=== PATIENT | female | born 1990 | race Caucasian/White ===

== ENCOUNTER 2022-07-22 19:58 | Emergency (ER) | payer MEDICAID, SELFPAY ==
[2022-07-22 20:12] VITALS: BP 165/86; PULSE 81; RESP 16; TEMP 36.8; O2SAT 99
--- NOTE | 2022-07-22 20:21 | XRR_ITS ---
PROCEDURE INFORMATION: Exam: XR Left Hand Exam date and time: 07/22/2022 8:30 PM Age: 31 years old Clinical indication: Injury or trauma; Other: Unsure; Blunt trauma (contusions or hematomas); Patient HX: PT C/O left hand pain onset over one week ago due to injury TECHNIQUE: Imaging protocol: Radiologic exam of the left hand. Views: 3 or more views. COMPARISON: No relevant prior studies available. FINDINGS: Bones/joints: Normal. Soft tissues: Normal. Other findings: Three views submitted. XR/XR hand LT min 3V* [id number] IMPRESSION: No acute findings.
--- NOTE | 2022-07-22 20:21 | USR_ITS ---
PROCEDURE INFORMATION: Exam: US Pelvis Limited, Transabdominal and US Pelvis, Transvaginal Exam date and time: 07/22/2022 8:33 PM Age: 31 years old Clinical indication: Menstruation abnormalities; Excessive menstruation; With regular cycle; Additional info: Vaginal bleeding TECHNIQUE: Imaging protocol: Real-time transabdominal and transvaginal pelvic ultrasound (limited) with image documentation. Transvaginal imaging was used for better evaluation of the endometrium, adnexa, and/or cervix. COMPARISON: No relevant prior studies available. FINDINGS: Uterus: The anteverted uterus measures about 10.4 x 5.9 by 6.9 cm. Endometrium measures about 14 mm in thickness which is slightly heterogeneous, with no obvious fluid/debris. No feeding vessels are seen by color Doppler to suggest large polypoid lesions.. No large uterine myoma. Somewhat heterogeneous myometrium with tiny myometrial cystic foci suggesting uterine adenomyosis. Cervix: Unremarkable cervix. Right ovary/adnexa: Right ovary measures 3.7 x 2 x 3.4 cm. The right ovary contains a unilocular cyst measuring 2.6 x 2.2 x 2.6 cm with no obvious solid elements. A few tiny simple follicles are seen bilaterally. No suspicious adnexal region masses or ovarian stromal edema on either side. There is flow in both ovarian parenchyma demonstrating normal spectral waveforms. Left ovary/adnexa: Left ovary measures 2.9 x 1.2 x 1.8 cm. Intraperitoneal space: Multiple transabdominal pelvic ultrasound images were obtained including limited duplex imaging. Details are somewhat limited and therefore transvaginal imaging was also performed. No significant free pelvic fluid. Urinary bladder: Urinary bladder is grossly unremarkable. US/US pelv w/transvag [id number] IMPRESSION: 1. Uterine adenomyosis. 2. Somewhat heterogeneous endometrium as described above. Follow-up assessment with saline hysterosonography may be obtained if clinically indicated. 3. No suspicious adnexal region masses. Right ovarian cyst measuring 2.6 cm, likely benign/physiologic.
--- NOTE | 2022-07-22 20:22 | ED_ITS ---
HPI - General: Chief complaint: Vaginal Bleeding Stated complaint: vaginal bleeding for 3wks, large clots Time Seen by Provider: 07/22/22 20:17 Source: patient Mode of arrival: ambulatory Limitations: no limitations History of Present Illness: 31-year-old female who states she has had a histor y of some irregular periods states she had her menstruation 3 weeks ago and has stopped bleeding for few days and started bleeding again over the last 2 days and today states she had very heavy bleeding states she been passing clots and soaked through a pad. She had some slight abdominal cramping she does not believe she is she denies any vomiting or diarrhea or dysuria she also has another complaint of left hand pain states she was driving 2 weeks ago and felt a pop at the base of her left index finger and has had some slight swelling there no redness no warmth to touch she rates that pain a 2 out of 10 Associated symptoms: Deny abdominal pain, headache(s), nausea or vomiting Review of Systems Const: Denies: fever(s), chills, body aches or change in appetite Eyes: Denies: blurry vision or eye discomfort ENMT: Denies: throat pain or dental pain Card: Denies: chest pain Resp: Denies: dyspnea GI: Denies: abdominal pain, nausea, vomiting or diarrhea : Reports: vaginal bleeding Musc: Reports: extremity pain Skin/Breast: Denies: rash Neuro: Denies: headache(s) Psych: Denies: depression [place]/Lymph: Denies: easy bruising All/Imm: Denies: urticaria PFSH ED PFSH: Medical History (Updated 07/22/22 @ 21:18 by Rubi Cruz MD) No pertinent past medical history Social History (Updated 07/22/22 @ 20:23 by Rubi Cruz MD) Substance/Drug Use: never Physical Exam Const: COMMON NORMALS: no acute distress, patient oriented x3 and healthy appearing HENMT: COMMON NORMALS: normocephalic and atraumatic HEAD & SCALP: normocephalic and atraumatic Eye: COMMON NORMALS: Equal, round and reactive pupils present and EOMs intact bilaterally PUPIL: Yes Equal, round and reactive pupils present Neck/C-Spine: COMMON NORMALS: full ROM and supple Chest: COMMONS NORMALS: normal inspection of the chest and normal palpation of entire chest wall Resp: COMMON NORMALS: normal respiratory effort, No retractions, No use of accessory muscles and clear to auscultation bilaterally AUSCULTATION: clear to auscultation bilaterally Cardio: COMMON NORMALS: regular rate, regular rhythm and No murmurs present (Cardio) RATE: regular rate RHYTHM: regular rhythm GI: COMMON NORMALS: Normal to inspection, nondistended, normoactive bowel sounds present, Soft to palpation, non-tender and no masses PALPATION: Yes Soft to palpation Extremity: NARRATIVE EXTREMITY EXAM: Some slight tenderness at the base of the first digit with slight swelling no redness no warmth to touch full range of motion she is able to make a fist without any problems Neuro: COMMON NORMALS: patient oriented x3, moves all extremities and no focal motor deficits Psych: COMMON NORMALS: mental status grossly normal, Normal thought process present and cooperative THOUGHT PROCESS: Normal thought process present Skin: COMMON NORMALS: no rashes or lesions noted and no wounds GENERAL SKIN EXAM: no rashes or lesions noted Course Vital Signs: Vital signs: Vital Signs Temperature 98.2 F 07/22/22 20:12 Pulse Rate 81 07/22/22 20:12 Respiratory Rate 16 07/22/22 20:12 Blood Pressure 165/86 07/22/22 20:12 Pulse Oximetry 99 07/22/22 20:12 Oxygen Delivery Me thod 07/22/22 20:12 MDM - OB/Uterine Contractions Medical Decision Making Patient presents here with vaginal bleeding is likely dysfunctional uterine bleeding ultrasound here is negative her hemoglobin is normal she is not her abdominal exam here is benign she is stable for discharge she is to follow-up with OB and return if worsening. Lab Data 07/22/22 20:32 07/22/22 20:32 Radiology Impressions Hand X-Ray 07/22/22 20:21 IMPRESSION: No acute findings. Laboratory Results WBC 10.2 10^3/uL (4.0-10.0) H 07/22/22 20:32 RBC 4.80 10^6/uL (4.1-5.3) 07/22/22 20:32 Hgb 14.5 g/dL (11.5-15.3) 07/22/22 20:32 Hct 42.7 % (37.0-47.0) 07/22/22 20:32 MCV 89.0 fl (81-99) 07/22/22 20: MCH 30.2 pg (28.0-34.0) 07/22/22: MCHC 34.0 g/dL (30.0-36.0) 07/22/22: RDW 13.2 % (12.1-15.1) 07/22/22 20: Plt Count 296 10^3/cmm (130-400) 07/22/22: MPV 10.6 fL (7.4-10.4) H 07/22/22 20: Neut % (Auto) 61.5 % 07/22/22: Lymph % (Auto) 26.7 % 07/22/22: [place] % (Auto) 9.2 % 07/22/22: Eos % (Auto) 1.8 % 07/22/22: Baso % (Auto) 0.5 % 07/22/22: Neut # (Auto) 6.29 10^3/uL (1.8-7.7) 07/22/22: Lymph # (Auto) 2.7 10^3/uL (0.8-4.8) 07/22/22: [place] # (Auto) 0.9 10^3/uL (0.2-0.9) 07/22/22: Eos # (Auto) 0.2 10^3/uL (0.0-0.8) 07/22/22: Baso # (Auto) 0.1 10^3/uL (0.0-0.1) 07/22/22: Nucleated RBC % (auto) 0 % 07/22/22: Nucleated RBCs # 0.0 /100WBC 07/22/22 20: Sodium 139 mmol/L (136-145) 07/22/22 20: Potassium 3.4 mmol/L (3.5-5.1) L 07/22/22 20: Chloride 102 mmol/L (98-107) 07/22/22 20: Carbon Dioxide 23 mmol/L (22-29) 07/22/22: Anion Gap 17.4 (5-19) 07/22/22 20: BUN 12 mg/dL (6-20) 07/22/22 20:32 Creatinine 0.5 mg/dL (0.5-0.9) 07/22/22 20:32 GFR Calculation 145.9 mL/min (90-130) H 07/22/22 20:32 Glucose 88 mg/dL (65-115) 07/22/22 20:32 Calculated Osmolality 287 mOsm/kg (285-295) 07/22/22 20:32 Calcium 9.4 mg/dL (8.5-10.5) 07/22/22 20:32 Total Bilirubin 0.3 mg/dL (0.15-1.2) 07/22/22 20:32 Alkaline Phosphatase 116 U/L (35-105) H 07/22/22 20:32 Total Protein 7.5 g/dL (6.6-8.7) 07/22/22 20:32 Albumin 4.5 g/dL (3.5-5.2) 07/22/22 20:32 Globulin 3.0 g/dL (1.3-4.6) 07/22/22 20:32 Ser , Semi-Qnt 1.00 mIU/mL 07/22/22 20:32 Discharge Plan Discharge Patient Disposition: Home Clinical Impression: Vaginal bleeding, Left hand pain Discharge Orders: Discharge ED (Routine); Ordered 07/22/22 Ordered By: Rubi Cruz Referrals: Frieda Hopper FNP [Family Provider] - Denae Welsh MD [Physician] - 1-3 days Katharina Hayes FNP [Primary Care Provider] - Discharge Diet: Advance as tolerated Discharge Activity: Resume usual activity Patient Instructions: Abnormal (Dysfunctional) Uterine Bleeding (ED) Coding Level of Care Code 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
[2022-07-22] MEDS: naproxen 500 mg Tablet PO (20:25)
[2022-07-22 20:40] LABS: Basophils # 0.1 10^3/uL (0.0-0.1); Basophils % 0.5 %; Eosinophils # 0.2 10^3/uL (0.0-0.8); Eosinophils % 1.8 %; Hematocrit 42.7 % (37.0-47.0); Hemoglobin 14.5 g/dL (11.5-15.3); Lymphocytes # 2.7 10^3/uL (0.8-4.8); Lymphocytes % 26.7 %; Mean Corpuscular Hemoglobin 30.2 pg (28.0-34.0); Mean Platelet Volume 10.6 fL (7.4-10.4); Monocytes # 0.9 10^3/uL (0.2-0.9); Monocytes % 9.2 %; Neutrophils # 6.29 10^3/uL (1.8-7.7); Neutrophils % 61.5 %; Nucleated Red Blood Cells % 0 %; Platelet Count 296 10^3/cmm (130-400); Red Cell Distribution Width 13.2 % (12.1-15.1); White Blood Count 10.2 10^3/uL (4.0-10.0)
[2022-07-22 21:13] LABS: Albumin Level 4.5 g/dL (3.5-5.2); Alkaline Phosphatase 116 U/L (35-105); Blood Urea Nitrogen 12 mg/dL (6-20); Calcium 9.4 mg/dL (8.5-10.5); Carbon Dioxide 23 mmol/L (22-29); Chloride 102 mmol/L (98-107); Glomerular Filtration Rate 145.9 mL/min (90-130); Glucose 88 mg/dL (65-115); Osmolality Calculated 287 mOsm/kg (285-295); Sodium 139 mmol/L (136-145); Total Bilirubin 0.3 mg/dL (0.15-1.2); Total Protein 7.5 g/dL (6.6-8.7)
[2022-07-22 21:16] LABS: Anion Gap 17.4 (5-19); Potassium 3.4 mmol/L (3.5-5.1)
[2022-07-22 21:25] LABS: Alanine Aminotransferase < 5 U/L (0-33); Aspartate Amino Transferase 5 U/L (0-32)
[2022-07-22 21:35] VITALS: BP 127/70; PULSE 89; RESP 14; O2SAT 99
== END 2022-07-22 21:36 | disposition home or self-care (01) ==
PROVIDERS: Emergency Provider Emergency Medicine; Family Provider Nurse Practitioner Family; PCP Nurse Practitioner Family
DX: N93.9 Abnormal uterine and vaginal bleeding, unspecified (principal); M79.642 Pain in left hand
CPT/HCPCS: 73130; 76830; 76856; 80053; 84702; 85025; 99284

== ENCOUNTER 2024-02-04 15:34 | Emergency (ER) | payer MEDICAID, SELFPAY ==
[2024-02-04 15:38] VITALS: BP 137/86; PULSE 90; RESP 16; TEMP 36.4; O2SAT 97; BMI 40.8
[2024-02-04 16:25] LABS: Basophils # 0.1 10^3/uL (0.0-0.1); Basophils % 0.6 %; Eosinophils # 0.2 10^3/uL (0.0-0.8); Eosinophils % 2.4 %; Hematocrit 37.8 % (36-47); Lymphocytes # 2.2 10^3/uL (0.8-4.8); Lymphocytes % 26.1 %; Mean Corpuscular HGB Conc 34.1 g/dL (30-55); Mean Corpuscular Hemoglobin 30.8 pg (27-33); Mean Corpuscular Volume 90.2 fl (85-98); Mean Platelet Volume 10.5 fL (7.4-10.4); Monocytes # 0.6 10^3/uL (0.2-0.9); Monocytes % 7.6 %; Neutrophils # 5.18 10^3/uL (1.8-7.7); Neutrophils % 62.5 %; Nucleated Red Blood Cells % 0 %; Platelet Count 304 10^3/cmm (157-399); Red Blood Count 4.19 10^6/uL (3.85-5.65); Red Cell Distribution Width 12.7 % (12.1-15.1)
--- NOTE | 2024-02-04 16:30 | USR_ITS ---
PROCEDURE INFORMATION: Exam: US Pelvis, Complete, Non-Obstetric Exam date and time: 02/04/2024 5:03 PM Age: 33 years old Clinical indication: Other: Bleeding; Additional info: Menometrorrhagia TECHNIQUE: Imaging protocol: Transabdominal pelvic nonobstetric ultrasound. Complete exam. Real time ultrasound with image documentation. COMPARISON: US pelvic complete* [id number] 07/22/2022 8:33 PM FINDINGS: Uterus: Uterus is normal in size. Endometrial stripe is normal. As before, there appears to be heterogeneous myometrium Right ovary/adnexa: Ovary is normal. No mass. Normal blood flow. Left ovary/adnexa: Ovary is normal. No mass. Normal blood flow. Intraperitoneal space: No intraperitoneal fluid. Urinary bladder: Normal. US/US pelv w/transvag [id number] IMPRESSION: 1. No acute findings. 2. Heterogeneous myometrium may represent uterine adenomyosis. This could be further assessed with nonemergent MRI pelvis without and with contrast if warranted.
[2024-02-04 16:40] LABS: HCG, Serum Qual Negative (Negative)
[2024-02-04 16:52] LABS: Alanine Aminotransferase 16 U/L (0-33); Albumin Level 3.9 g/dL (3.5-5.2); Alkaline Phosphatase 96 U/L (35-105); Chloride 106 mmol/L (98-107); Potassium 3.7 mmol/L (3.5-5.1); Sodium 142 mmol/L (136-145)
[2024-02-04 17:13] LABS: Anion Gap 17.7 (5-19); Aspartate Amino Transferase 13 U/L (0-32); Blood Urea Nitrogen 12 mg/dL (6-20); Calcium 8.7 mg/dL (8.5-10.5); Carbon Dioxide 22 mmol/L (22-29); Creatinine Clr Calc Pharmacy 192.9737; Globulin 3.3 g/dL (1.3-4.6); Glomerular Filtration Rate 116.6 mL/min (90-130); Glucose 146 mg/dL (65-115); Lipase 50 U/L (13-60); Osmolality Calculated 296 mOsm/kg (285-295); Total Bilirubin 0.3 mg/dL (0.15-1.2); Total Protein 7.2 g/dL (6.6-8.7)
[2024-02-04 17:35] VITALS: BP 152/71; PULSE 90; RESP 16; O2SAT 95
--- NOTE | 2024-02-04 17:48 | CTR_ITS ---
PROCEDURE INFORMATION: Exam: CT Abdomen And Pelvis With Contrast Exam date and time: 02/04/2024 6:56 PM Age: 33 years old Clinical indication: Abdominal pain; Additional info: Lower quadrant pain TECHNIQUE: Imaging protocol: Computed tomography of the abdomen and pelvis with contrast. Radiation optimization: All CT scans at this facility use at least one of these dose optimization techniques: automated exposure control; mA and/or kV adjustment per patient size (includes targeted exams where dose is matched to clinical indication); or iterative reconstruction. Contrast material: OMNI 350; Contrast volume: 100 ml; Contrast route: INTRAVENOUS (IV); COMPARISON: US pelv w/transvag [id number] 02/04/2024 5:03 PM RADIATION DOSE METRICS: Total DLP (mGy-cm): 1211.43 FINDINGS: Liver: The liver is mildly enlarged. No suspicious liver lesion. Gallbladder and biliary ducts: Normal. No calcified stones. No ductal dilation. Pancreas: Normal. No ductal dilation. Spleen: Normal. No splenomegaly. Adrenal glands: Normal. No mass. Kidneys and ureters: Normal. No hydronephrosis. Stomach and bowel: Unremarkable. No obstruction. No mucosal thickening. Appendix: No evidence of appendicitis. Intraperitoneal space: Unremarkable. No free air. No significant fluid collection. Vasculature: Unremarkable. No abdominal aortic aneurysm. Lymph nodes: Unremarkable. No enlarged lymph nodes. Urinary bladder: Unremarkable as visualized. Reproductive: Prominent appearance of the uterus with mild heterogeneity. No suspicious adnexal mass. Bones/joints: Slight grade 1 retrolisthesis and moderate degenerative changes at L5-S1 with chronic bilateral pars defects. Soft tissues: Unremarkable. CT/CT abdomen pelvis w con* [id number] IMPRESSION: 1. No acute findings in the abdomen/pelvis. 2. Prominent, heterogeneous appearing uterus. This could be further assessed with nonemergent MRI pelvis if warranted. 3. Hepatomegaly.
--- NOTE | 2024-02-04 17:49 | W.ED.FEMALGU ---
HPI - Female Genitourinary General: Chief complaint: Vaginal Bleeding Stated complaint: abd pain, heavy bleeding Time Seen by Provider: 02/04/24 16:15 Source: patient Mode of arrival: ambulatory Limitations: no limitations History of Present Illness: Patient is a 33-year-old female who presents the emergency department complaining of 1 month of vaginal bleeding associated with some lower abdominal pain. States that she was started on control for this bleeding, and has an appointment with ASSISTANT PURCHASING MANAGER in a couple of weeks. She states that she was told to come to the emergency department today for evaluation for the bleeding, as she states she has been bleeding through 3 10-hour pads per day. She denies possibility of . Denies any urinary symptoms, vaginal odor, or vaginal discharge. She states that she recently had a Pap smear that was overall unremarkable, per the patient. She denies history of PCOS. She is denying any fever, changes in bowel, or other symptoms at this time. Vitals stable here in the emergency department. MD elicited complaint: vaginal bleeding Onset (ago): month(s) (1) Location of symptoms: suprapubic, LLQ and RLQ Severity: moderate Consistency: constant Vaginal discharge: none Vaginal bleeding: heavy and clots Associated symptoms: Reports abdominal pain; Deny headache(s), nausea or vaginal discharge Patient : No Related Data Allergies Allergy/AdvReac Type Severity Reaction Status Date / Time No Known Allergies Allergy Verified 02/04/24 15:47 Review of Systems General: Reports: 10 or more systems reviewed and unremarkable except in HPI and below Const: Reports: fatigue; Denies: fever(s), chills, change in appetite, change in weight or diaphoresis ENMT: Denies: throat pain or hoarseness Card: Denies: chest pain, palpitations or lightheadedness Resp: Denies: dyspnea, productive cough or wheezing GI: Reports: abdominal pain; Denies: nausea, vomiting, diarrhea, constipation, bloating, change in stool character or hematochezia : Reports: vaginal bleeding and pelvic pain; Denies: flank pain, difficulty voiding, dysuria, urinary frequency, urinary urgency, vaginal odor or vaginal discharge Musc: Denies: neck pain or back pain Skin/Breast: Denies: rash or new lesions Neuro: Denies: headache(s) or dizziness PFS ED PFSH: Medical History No pertinent past medical history Social History Substance/Drug Use: never Physical Exam Const: COMMON NORMALS: no acute distress, patient oriented x3, no limitations, alert and well nourished GENERAL APPEARANCE: cooperative and comfortable NUTRITIONAL APPEARANCE: obese morbidly obese ORIENTATION/CONSCIOUSNESS: Yes awake HENMT: COMMON NORMALS: normocephalic, atraumatic, hearing grossly normal bilaterally, external ears normal, Normal external nose present, Normal nasal mucous membranes and turbinates present and moist oral mucous membranes HEAD & SCALP: normocephalic and atraumatic NOSE: Normal external nose present and Normal nasal mucous membranes and turbinates present EXTERNAL EAR: Yes external ears normal Eye: COMMON NORMALS: Equal, round and reactive pupils present, EOMs intact bilaterally, conjunctivae normal and normal visual lock by confrontation CONJUNCTIVA: Yes conjunctivae normal PUPIL: Yes Equal, round and reactive pupils present Neck/C-Spine: COMMON NORMALS: full ROM, supple, no meningeal signs and no JVD Resp: COMMON NORMALS: normal respiratory effort, No retractions, No use of accessory muscles and clear to auscultation bilaterally AUSCULTATION: clear to auscultation bilaterally, no crackles, no rales, no rhonchi and no wheezes Cardio: COMMON NORMALS: no JVD, regular rate, regular rhythm, S1 normal heart sound present, S2 normal heart sound present, No gallops present (Cardio), No clicks present (Cardio), No murmurs present (Cardio), No rub (Cardio) and Peripheral pulses 2+ throughout RATE: regular rate RHYTHM: regular rhythm HEART SOUNDS: S1 normal heart sound present and S2 normal heart sound present PERIPHERAL PULSES: Peripheral pulses 2+ throughout GI: COMMON NORMALS: Soft to palpation, No hepatosplenomegaly present and no masses INSPECTION: Yes central obesity AUSCULTATION: Yes normoactive bowel sounds PALPATION: Yes Soft to palpation, Yes Tenderness to palpation present (GI) Details: LLQ, RLQ and other (Suprapubic), No Guarding due to palpation present (GI), No Rigid due to palpation and Yes No hepatosplenomegaly present RECTAL EXAM: deferred : COMMON NORMALS: Yes no CVA tenderness BLADDER/KIDNEY EXAM: Yes no CVA tenderness Back/Pelvis: COMMON NORMALS: no CVA tenderness Extremity: COMMON NORMALS: normal to inspection and full ROM Neuro: COMMON NORMALS: patient oriented x3, moves all extremities, no focal motor deficits and no sensory deficits noted SENSORIUM/ORIENTATION: Yes alert MENINGEAL SIGNS: Yes no meningeal signs Psych: COMMON NORMALS: mental status grossly normal, cooperative and speech normal SPEECH: Yes normal speech Skin: COMMON NORMALS: no rashes or lesions noted GENERAL SKIN EXAM: no rashes or lesions noted Course Vital Signs: Vital signs: Vital Signs Temperature 97.5 F L 02/04/24 15:38 Pulse Rate 84 02/04/24 19:42 Respiratory Rate 16 02/04/24 17:35 Blood Pressure 133/81 02/04/24 19:42 Pulse Oximetry 96 02/04/24 19:42 Oxygen Delivery Me thod Room Air 02/04/24 18:30 MDM - Female Medical Decision Making This patient presented with a month of bleeding, was started on control and had reported to me that she had unremarkable Pap smear. However was referred to the emergency department by PCP due to the continued bleeding. Here in ultrasound did show potentially signs of an adenomyosis, and recommended was a nonemergent MRI. CT also obtained to rule out any appendicitis or other acute abdominal process, this again commented on the heterogenous appearing uterus. Lab work unremarkable, urine does not appear overtly infectious at this time will not treat with antibiotics. Her hemoglobin was normal and there is no sign for an acute blood loss anemia. Her physical examination overall unremarkable, and her vitals have remained stable. Return precautions were given. She will keep plan for follow-up with ASSISTANT PURCHASING MANAGER, also will call in the morning to see if she can get in earlier. Lab Data 02/04/24 16:05 02/04/24 16:05 Radiology Impressions Pelvic/Transvag US 02/04/24 16:30 IMPRESSION: 1. No acute findings. 2. Heterogeneous myometrium may represent uterine adenomyosis. This could be further assessed with nonemergent MRI pelvis without and with contrast if warranted. Abdomen/Pelvis CT 02/04/24 17:48 IMPRESSION: 1. No acute findings in the abdomen/pelvis. 2. Prominent, heterogeneous appearing uterus. This could be further assessed with nonemergent MRI pelvis if warranted. 3. Hepatomegaly. Laboratory Results WBC 8.30 10^3/uL (3.29-11.43) 02/04/24 16:05 RBC 4.19 10^6/uL (3.85-5.65) 02/04/24 16:05 Hgb 12.90 g/dL (11.27-16.99) 02/04/24 16:05 Hct 37.8 % (36-47) 02/04/24 16:05 MCV 90.2 fl (85-98) 02/04/24 16:05 MCH 30.8 pg (27-33) 02/04/24 16:05 MCHC 34.1 g/dL (30-55) 02/04/24 16:05 RDW 12.7 % (12.1-15.1) 02/04/24 16:05 Plt Count 304 10^3/cmm (157-399) 02/04/24 16:05 MPV 10.5 fL (7.4-10.4) H 02/04/24 16:05 Neut % (Auto) 62.5 % 02/04/24 16:05 Lymph % (Auto) 26.1 % 02/04/24 16:05 [place] % (Auto) 7.6 % 02/04/24 16:05 Eos % (Auto) 2.4 % 02/04/24 16:05 Baso % (Auto) 0.6 % 02/04/24 16:05 Neut # (Auto) 5.18 10^3/uL (1.8-7.7) 02/04/24 16:05 Lymph # (Auto) 2.2 10^3/uL (0.8-4.8) 02/04/24 16:05 [place] # (Auto) 0.6 10^3/uL (0.2-0.9) 02/04/24 16:05 Eos # (Auto) 0.2 10^3/uL (0.0-0.8) 02/04/24 16:05 Baso # (Auto) 0.1 10^3/uL (0.0-0.1) 02/04/24 16:05 Nucleated RBC % (auto) 0 % 02/04/24 16:05 Nucleated RBCs # 0.0 /100WBC 02/04/24 16:05 Sodium 142 mmol/L (136-145) 02/04/24 16:05 Potassium 3.7 mmol/L (3.5-5.1) 02/04/24 16:05 Chloride 106 mmol/L (98-107) 02/04/24 16:05 Carbon Dioxide 22 mmol/L (22-29) 02/04/24 16:05 Anion Gap 17.7 (5-19) 02/04/24 16:05 BUN 12 mg/dL (6-20) 02/04/24 16:05 Creatinine 0.6 mg/dL (0.5-0.9) 02/04/24 16:05 GFR Calculation 116.6 mL/min (90-130) 02/04/24 16:05 Glucose 146 mg/dL (65-115) H 02/04/24 16:05 Calculated Osmolality 296 mOsm/kg (285-295) H 02/04/24 16:05 Calcium 8.7 mg/dL (8.5-10.5) 02/04/24 16:05 Total Bilirubin 0.3 mg/dL (0.15-1.2) 02/04/24 16:05 AST 13 U/L (0-32) 02/04/24 16:05 ALT 16 U/L (0-33) 02/04/24 16:05 Alkaline Phosphatase 96 U/L (35-105) 02/04/24 16:05 Total Protein 7.2 g/dL (6.6-8.7) 02/04/24 16:05 Albumin 3.9 g/dL (3.5-5.2) 02/04/24 16:05 Globulin 3.3 g/dL (1.3-4.6) 02/04/24 16:05 Lipase 50 U/L (13-60) 02/04/24 16:05 HCG, Qual Negative (Negative) 02/04/24 16:05 Urine Color Yellow (Yellow) 02/04/24 16:07 Urine Appearance Clear (CLEAR) 02/04/24 16:07 Urine pH 6.0 (5-7) 02/04/24 16:07 Ur Specific [place] 1.023 (1.005-1.030) 02/04/24 16:07 Urine Protein Trace (Negative) A 02/04/24 16:07 Urine Glucose (UA) Negative (Normal) 02/04/24 16:07 Urine Ketones Negative (Negative) 02/04/24 16:07 Urine Blood 3+ (Negative) A 02/04/24 16:07 Urine Nitrate Negative (Negative) 02/04/24 16:07 Urine Bilirubin Negative (Negative) 02/04/24 16:07 Urine Urobilinogen 1.0 mg/dL (Negative) 02/04/24 16:07 Ur Leukocyte Esterase 1+ (Negative) A 02/04/24 16:07 Urine RBC 51-100 /hpf (0-2) H 02/04/24 16:07 Urine WBC 11-20 /hpf (0-5) H 02/04/24 16:07 Ur Squamous Epith Cells 0-5 /hpf (0-5) 02/04/24 16:07 Calcium Oxalate Crystal 5-10 /hpf H 02/04/24 16:07 Amorphous Sediment Not Reportable 02/04/24 16:07 Urine Bacteria None seen /hpf (NONE) 02/04/24 16:07 Hyaline Casts 4.11 /lpf 02/04/24 16:07 Urine Mucus Trace /hpf 02/04/24 16:07 All radiology interpretation(s) finalized by discharge Discharge Plan Discharge Patient Disposition: Home Clinical Impression: Abnormal uterine bleeding (AUB) Condition: Stable Discharge Orders: Discharge ED (Routine); Ordered 02/04/24 Ordered By: Tyler Blake Referrals: Katharina Hayes FNP [Primary Care Provider] - Patient Instructions: Dysmenorrhea (ED) Activity Restrictions/Additional Instructions: Please call your ASSISTANT PURCHASING MANAGER in the morning to schedule an earlier appointment to obtain MRI. Continue taking your control, and return with any new or worsening of symptoms as we discussed. Coding Level of Care Code ED [place] Consultant for Arturo Canas
[2024-02-04 18:05] LABS: Bilirubin Urine Negative (Negative); Blood Urine 3+ (Negative); Glucose Urine UA Negative (Normal); Ketones Urine Negative (Negative); Leukocyte Esterase Urine 1+ (Negative); Nitrate Urine Negative (Negative); Protein Urine Trace (Negative); Specific Gravity, Urine 1.023 (1.005-1.030); Urine Appearance Clear (CLEAR); Urine Color Yellow (Yellow)
[2024-02-04 18:11] LABS: Add Urine Microscopic? YES; Bacteria Urine None Seen /hpf; Hyaline Casts Urine 4.11 /lpf; RBC Urine 51-100 /hpf (0-2); Squamous Epithelial Cell Urine 0-5 /hpf (0-5)
[2024-02-04 18:30] VITALS: BP 139/92; PULSE 92; O2SAT 96
[2024-02-04 18:30] LABS: Add Urine Culture? Yes; Mucus Urine TRACE /hpf
[2024-02-04 19:42] VITALS: BP 133/81; PULSE 84; O2SAT 96
== END 2024-02-04 19:44 | disposition home or self-care (01) ==
PROVIDERS: Emergency Medicine; Emergency Provider Physician Assistant; PCP Nurse Practitioner Family
DX: N93.9 Abnormal uterine and vaginal bleeding, unspecified (principal)
CPT/HCPCS: 36415; 74177; 76830; 76856; 80053; 81001; 83690; 84703; 85025; 87086; 99284; Q9967